=== PATIENT | female | born 1950 | race Caucasian/White ===

== ENCOUNTER 2016-04-18 08:18 | Emergency (ER) | payer MEDICARE, BC ==
[2016-04-18 08:41] VITALS: BP 150/73
[2016-04-18] MEDS ORDERED: IBUPROFEN 400 MG TABLET PO ONE (08:45)
[2016-04-18] MEDS ORDERED: IBUPROFEN 400 MG TABLET ONE (08:49)
--- NOTE | 2016-04-18 09:02 | ERNOTE ---
Lower Extremity HPI - Narrative Date of Service: 04/18/16 - General Lower Extremities Pain: ankle: left Time Seen by Provider: 04/18/16 08:38 Source: patient, family Exam Limitations: no limitations - Immun/Allergies/Home Medications Immunizations: IMMUNIZATION HX Immunizations Up to Date Yes History of Influenza Vaccine Yes Hx Pneumococcal Vaccination Yes Allergies/Adverse Reactions: Allergies Allergy/AdvReac Type Severity Reaction Status Date / Time shellfish derived AdvReac Intermediate SEVERE Verified 04/18/16 08:44 VOMITING AND DIARRHEA cefdinir AdvReac Mild Diarrhea Verified 04/18/16 08:44 duloxetine HCl AdvReac Mild Nausea Verified 04/18/16 08:44 [From Cymbalta] levofloxacin [From Levaquin] AdvReac Mild DIZZINESS Verified 04/18/16 08:44 venlafaxine HCl AdvReac Mild "MEDICATION Verified 04/18/16 08:44 [From Effexor] INTOLERANCE" Home Medications: HOME MEDICATIONS ALPRAZolam [Xanax] 0.5 mg PO TID PRN 08/28/14 [Last Taken Unknown] Aspirin [Aspirin Enteric Coated] 81 mg PO DAILY 08/28/14 [Last Taken Unknown] Diltiazem HCl [Cardizem Cd] 180 mg PO DAILY 08/28/14 [Last Taken Unknown] FLUoxetine HCL [Prozac] 20 mg PO DAILY 08/28/14 [Last Taken Unknown] Ibuprofen [Motrin] 400 mg PO Q6H PRN 08/28/14 [Last Taken Unknown] Multi-Tebs 1 tab PO DAILY 08/28/14 [Last Taken Unknown] Omeprazole [Prilosec] 20 mg PO DAILY 08/28/14 [Last Taken Unknown] Albuterol Sulfate [Ventolin HFA] 1 puff IH PRN 04/18/16 [Last Taken Unknown] Fluticasone Propionate [Flovent Hfa] 10.6 gm IH 04/18/16 [Last Taken Unknown] Ibuprofen [Motrin] 800 mg PO QID PRN #100 tab 04/18/16 [Last Taken Unknown] Loratadine [Claritin] 10 mg PO DAILY 04/18/16 [Last Taken Unknown] Montelukast Sodium [Singulair] 10 mg PO DAILY 04/18/16 [Last Taken Unknown] - History of Present Illness Narrative: At home today at 0230 stood up from where she had been sleeping in a chair, left leg gave way for unknown reasons, she fell, inverting her left ankle in the process, resulting in injury. No prior injury. Left lateral ankle is swollen and painful, and it is difficult for her to walk on it. She has taken no medication for this problem so far. Occurred: this morning Location of Incident: home Method of Injury: Reports: fell Reason for Fall: Reports: unknown Loss of Consciousness: Reports: no loss of consciousness Modifying Factors - (Improves): Reports: rest Modifying Factors - (Worsens): Reports: jarring, movement Associated Symptoms: Denies: sensory loss, other injuries Other Injuries: Reports: none Subsequent Symptoms: Denies: sensory loss, numbness, motor loss, bowel/bladder problem Prior Treament: Denies: currently on antibiotics Review of Systems - Review of Systems Constitutional: Present: no symptoms reported EYE: Present: no symptoms reported ENT: Present: no symptoms reported Respiratory: Present: no symptoms reported Cardiology: Present: no symptoms reported Gastrointestinal/Abdominal: Present: no symptoms reported Genitourinary: Present: no symptoms reported Musculoskeletal: Present: See HPI Neurological: Present: no symptoms reported Endocrine: Present: no symptoms reported Hematologic/Lymphatic: Present: no symptoms reported Psych: Present: no symptoms reported All Other Systems: All systems neg except as marked - Patient's Past Medical History Patient History - Medical: Anxiety, Arthritis, GERD, Migraines, UTI'S Patient History - Cardiac/Respiratory: Atrial Fibrillation, Hypertension Patient History - Cancer: No Hx of Cancer Patient History - Surgical Procedures: Other Patient History - Other: None - Social History Living Situations: spouse Abuse History: No History of abuse Psych History: Hx of Anxiety, Hx of Depression, Current tx/ever been on anti- depressants or anti-anxiety meds Smoking Status: Former smoker Have you smoked in the past 12 months: No Do you dip or chew tobacco: No Alcohol Use: rarely Drug Use: none, other - Immunizations Immunizations Up to Date: Yes Hx Pneumococcal Vaccination: Yes History of Influenza Vaccine: Yes Physical Exam - Physical Exam General Appearance: Present: wd/wn, alert, no apparent distress Eye Exam: Normal inspection: bilateral, PERRL: bilateral, EOMI: bilateral Ears, Nose, Throat: Present: normal ENT inspection, hearing grossly normal Neck: Present: normal inspection Respiratory: Present: no respiratory distress Cardiovascular/Chest: Present: regular rate, rhythm Back Exam: Present: normal inspection, no CVA tenderness, no vertebral tenderness Extremity Exam: Present: other - left ankle minimally tender over deltoid ligament. moderate swelling over lateral malleolus. very tender over lateral malleolus and all three lateral ligaments. achilles tedon not tender. Distal circulation and sensation intact. Neurological Exam: Present: alert, oriented, normal mood/affect Skin Exam: Present: normal color, warm/dry ED Progress - Vital Signs Patient's Vital Signs:: I have reviewed the patient's vital signs. Vital Signs: Vital Signs 04/18/16 08:36 Temperature 37.6 C H Pulse Rate 86 Respiratory 14 Rate Blood Pressure 150/73 O2 Sat by Pulse 96 Oximetry - X-Ray X-Ray #1 X-Ray: ankle Interpretation: Reviewed by me - no fracture - Progress/Reassessment Chief Complaint: Ankle Injury/ Pain Departure Clinical Impression: Left ankle sprain Qualifiers: Encounter type: initial encounter Involved ligament of ankle: unspecified ligament Qualified Code(s): S93.402A - Sprain of unspecified ligament of left ankle, initial encounter - Departure Disposition: Home self-care Condition: Good Instructions: Ankle Sprain, RICE for Routine Care of Injuries, [id number] Additional Instructions: Follow up with your provider next week sometime. Prescriptions: Ibuprofen [Motrin] 800 mg PO QID PRN #100 tab PRN Reason: pain
== END 2016-04-18 10:34 | disposition home or self-care (01) ==
LOC: ER 08:18
DX: S93.402A Sprain of unspecified ligament of left ankle, initial encounter (principal); W01.0XXA Fall on same level from slipping, tripping and stumbling without subsequent striking against object, initial encounter; Y92.008 Other place in unspecified non-institutional (private) residence as the place of occurrence of the external cause; K21.9 Gastro-esophageal reflux disease without esophagitis; I10 Essential (primary) hypertension; F41.9 Anxiety disorder, unspecified